=== PATIENT | female | born 1955 | race Caucasian/White ===

== ENCOUNTER 2016-10-01 09:52 | Inpatient (IN) | payer OTHER ==
[2016-10-01] VITALS (15 sets, daily range): BP systolic 114–159; BP diastolic 68–92; PULSE 75–99; RESP 11–26; O2SAT 93–99
[~2016-10-01] VITALS: Ht 162.6 cm; Wt 62.1 kg
[~2016-10-01 09:52] MED LIST: Bupivacaine Liposome 1.3% 20 mL Inj NERVEBLOCK PRN; CeFAZolin Inj 2 GM in IV Premix 1 EACH IV ONE; DIPH25CA6 PO; Lactated Ringer's 1,000 ML IV ONE; OXYC1TAB24 PO; RANI150T11 PO; Tranexamic Acid 100 mg/mL 10 mL Inj IV SCH; Vancomycin Inj 1,000 MG in IV Premix 1 EACH IV ONE
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
[2016-10-01] MEDS ORDERED: Lactated Ringer's 500 ML IV PRN (11:28)
[2016-10-01] MEDS ORDERED: Lactated Ringer's 1,000 ML IV SCH (11:28)
[2016-10-01] MEDS ORDERED: fentaNYL-PF 50 mCg/mL 2 mL Inj IVPUSH PRN (11:30)
[2016-10-01] MEDS ORDERED: hydrALAZINE 20 mg/mL Inj IVPUSH PRN (11:30)
[2016-10-01] MEDS ORDERED: MetoCLOpramide 5 mg/mL 2 mL Inj IVPUSH PRN ×2 (11:30→13:20)
[2016-10-01] MEDS ORDERED: EPHEDrine Sulfate 50 mg/mL Inj IVPUSH PRN (11:30)
[2016-10-01] MEDS ORDERED: Dexamethasone 4 mg/mL Inj IVPUSH PRN (11:30)
[2016-10-01] MEDS ORDERED: Phenylephrine 10,000 mCg/mL Inj IVPUSH PRN (11:30)
[2016-10-01] MEDS ORDERED: HYDROmorphone 1 mg/mL Inj IVPUSH PRN (11:30)
[2016-10-01] MEDS ORDERED: Atropine 0.4 mg/mL Inj IVPUSH PRN (11:30)
[2016-10-01] MEDS ORDERED: Labetalol 5 mg/mL 4 mL Inj IV PRN (11:30)
[2016-10-01] MEDS ORDERED: Ondansetron 2 mg/mL 2 mL Inj IVPUSH PRN ×2 (11:30→13:20)
[2016-10-01] MEDS ORDERED: Bupivacaine Liposome 1.3% 20 mL Inj INFILTRATE ONE (11:46)
[2016-10-01] MEDS ORDERED: Gentamicin 40 mg/mL 2 mL Inj IRRIGATION ONE (11:46)
[2016-10-01] MEDS ORDERED: Bupivacaine-MPF 0.25%/EPI 30 mL Inj INJ ONE (11:46)
[2016-10-01] MEDS ORDERED: Sodium Biphos-Phos 133 mL Enema RECTAL PRN (13:20)
[2016-10-01] MEDS ORDERED: Polyethylene Glycol (PEG) 17 Gm Powder PO PRN (13:20)
[2016-10-01] MEDS ORDERED: Magnesium Hydroxide 10 mL Oral Concentration PO PRN (13:20)
[2016-10-01] MEDS ORDERED: diphenhydrAMINE 25 mg Capsule PO PRN ×2 (13:20→15:00)
[2016-10-01] MEDS ORDERED: Vancomycin Dose per Pharmacist XX ONE (13:20)
--- NOTE | 2016-10-01 13:54 | DRSVH ---
PROCEDURE: X-RAY LEFT KNEE, ONE OR TWO VIEWS ([id number]) INDICATIONS: postop TECHNIQUE: 2 view(s) of the knee acquired. COMPARISON: None. FINDINGS: Bones: Patient is status post knee joint arthroplasty. Hardware components are in expected position s. Visualized bony structures are intact. Soft tissues: Overlying postoperative changes are noted. IMPRESSION: Post operative changes as above. Dictated by: Keara Pollack M.D. on 10/01/2016 at 12:51 Approved by: Keara Pollack M.D. on 10/01/2016 at 12:52
--- NOTE | 2016-10-01 14:32 | PCM.ANEP1 ---
Post Anesthesia PACU Phase 1 Assessment Date of Service: Oct 01, 2016 Vital Signs Vital Signs Date Time Temp Pulse Resp B/P Pulse Ox O2 Delivery O2 Flow Rate FiO2 10/01/16 14:21 80 19 143/84 99 Nasal Cannula 2 10/01/16 14:05 76 12 126/84 98 Nasal Cannula 2 10/01/16 14:00 76 12 128/75 99 Nasal Cannula 2 10/01/16 13:55 36 75 12 123/80 93 Room Air 10/01/16 13:50 81 12 114/73 94 Room Air 10/01/16 13:49 12 94 10/01/16 13:45 85 20 120/68 94 Room Air 10/01/16 13:40 83 11 118/71 98 Room Air 10/01/16 13:35 96 15 117/74 95 Room Air 10/01/16 13:34 36.5 99 26 122/70 95 Room Air 10/01/16 10:12 36.4 86 16 143/85 98 Room Air Anesthetic Administered: Regional Block, SAB Level of Alertness: Awake, talking SHAH's with Equal Strength: No Pain: No Nausea or Vomiting: No CV Function & Hydration Stable: Yes Airway Device: Oxygen Delivery: Room Air Lungs: Normal Air Movement Dermatome Level: T10 (Umbilicus) PACU Phase 2 Assessment Complications: No Follow up Care: N/A Patient Instructions Provided: N/A Slick Malone MD Oct 01, 2016 14:32
[2016-10-01] MEDS ORDERED: Phenylephrine/NS 100 mCg/mL 10 mL Syringe IVPUSH ONE (14:35)
[2016-10-01] MEDS ORDERED: Propofol 10,000 mCg/mL 20 mL Inj ONE (14:35)
[2016-10-01] MEDS ORDERED: fentaNYL-PF 50 mCg/mL 2 mL Inj ONE (14:35)
--- NOTE | 2016-10-01 14:45 | NUR ---
received to room 1020 post op left knee. VSS, alert/oriented, denies pain or nausea at this time, ortho signs OK, lung sounds clear, pt was able to void on BSC with assist.
[2016-10-01] MEDS: oxyCODONE-Acetamin 5-325 mg Tablet PO PRN (16:25)
[2016-10-01] MEDS: Sodium Chloride LOK Flush 10 mL Syringe IV SCH (16:58)
[2016-10-01] MEDS ORDERED: 0.9% Sodium Chloride 250 ML ONE (20:03)
[2016-10-01] MEDS: Senna-Docusate 8.6-50 mg Tablet PO SCH ×2 (20:10→20:30)
[2016-10-01] MEDS: CeFAZolin Inj 2 GM in IV Premix 1 EACH IV SCH (20:12)
--- NOTE | 2016-10-01 21:45 | OP ---
[address] [address] OPERATIVE REPORT PATIENT: JACE BROWN : 1955 MR#: [id number] ADMIT: 10/01/2016 JOB ID: [id number] DATE OF SURGERY: PREOPERATIVE DIAGNOSIS(ES): Advanced arthritis, left knee. POSTOPERATIVE DIAGNOSIS(ES): Advanced arthritis, left knee. PROCEDURE: Total knee arthroplasty. SURGEON: Mingo Leung MD. CABLEWAY OPERATOR: Jackeline Armstrong PA-C. COMPLICATIONS: None. INDICATIONS: This woman has had severe progressive disability uncontrolled by conservative treatment options. She elects to proceed with a total knee replacement. She understands and accepts the potential for risks and complications, which includes but is not limited to infection, thromboembolic, neurovascular events, as well as potential for progressive arthritis and implant failure. Understanding these, she wishes to proceed. PROCEDURE: The patient was prepped and draped in the usual sterile fashion. An anteromedial approach was made. The patella was subluxed laterally, cut and sized to a 32 mm component. Drill stabilization holes were made. A patellar protection plate was utilized. Drill hole placed in the distal femur. A 5-degree valgus distal femoral cut was made. The femur was sized to a 7 chamfer cutting block, fixed in appropriate position and rotation, and drill holes and chamfer cuts were made. Tibia was cut with the extramedullary tool sized to a D tibial component and trial reduction was performed. A 12 mm polyethylene produced excellent alignment, soft tissue tension and tracking. All meniscal tissue and osteophytes were removed. The knee was irrigated with pressurized lavage followed by pressurized cementation. Excess cement was removed during the curing process. Final construct assembled. Tourniquet let down. Hemostasis achieved. Deep closure over a Hemovac drain with number #2 deep followed by a 2-0, 3-0, and a 4-0 intracuticular stitch. Cut margins had been injected with Marcaine with Exparel, the knee had been lavaged with a dilute Betadine solution.
[2016-10-02] MEDS: Sodium Chloride LOK Flush 10 mL Syringe IV SCH ×3 (00:48→14:49)
[2016-10-02] MEDS: CeFAZolin Inj 2 GM in IV Premix 1 EACH IV SCH (04:08)
[2016-10-02 05:17] VITALS: BP 119/74; PULSE 83; RESP 18; O2SAT 93
--- NOTE | 2016-10-02 05:23 | NUR ---
Pain Pt is alert and oriented and able to make needs known. No decreased in LOC noted. Denies N/V/D, resp distress and/or SOB. Dressing on LLE is clean, dry and intact. c/o left knee pain x1 and Morphine 1mg IV administered with good relief noted and reported. Ice also applied on and off on left knee with some relief. Hemovac intact and draining with no concerns. Will continue to monitor.
[2016-10-02 05:40] LABS: BASOPHILS % (AUTO) 0.1 % (0-3); EOSINOPHILS % (AUTO) 0.9 % (0-5); Mean Corpuscular Hemoglobin 34.2 pg (27.0-35.0); Mean Corpuscular Volume 104.2 fL (81-100); NEUTROPHILS % (AUTO) 73.3 % (40-74); Platelet Count 117 bil/L (150-400)
[2016-10-02 08:14] VITALS: BP 117/75; PULSE 90; RESP 18; O2SAT 93
[2016-10-02] MEDS: Senna-Docusate 8.6-50 mg Tablet PO SCH ×2 (08:30→20:42)
--- NOTE | 2016-10-02 11:01 | PCM.PNORTH ---
Subjective Date of Service: Oct 02, 2016 Visit Information: Reason for Visit Left Knee Arthritis Surgery/Surgery Date [facility] 10/01/16 Post-Op Day # 1 Date of Admission: Oct 01, 2016 at 14:34 Hospital Day # Subjective Patient states she is having moderate amount of pain but it is controlled at this time. Postop General: No Complaints, No Shortness of Breath Pain Management: PO Objective Exam Objective Patient sitting up in bed Vital Signs and I/O Vital Sign - Last Date Time Temp Pulse Resp B/P Pulse Ox O2 Delivery O2 Flow Rate FiO2 10/02/16 08:14 37.4 90 18 117/75 93 Room Air 10/01/16 14:45 2.00 Intake and Output 10/01/16 10/01/16 10/02/16 Cumulative From/Thru 15:00 23:00 07:00 09/20/16 16:17 - 10/02/16 06:53 Intake Total 1050 ml 450 ml 400 ml 1900 ml Output Total 20 ml 250 ml 405 ml 675 ml Balance 1030 ml 200 ml -5 ml 1225 ml Intake Oral 450 ml 400 ml 850 ml IV Total 1050 ml 1050 ml Output Urine Total 250 ml 275 ml 525 ml Drainage Total 130 ml 130 ml Estimated Blood Loss 20 ml 20 ml # Bowel Movements 0 0 Lab & Micro Results Laboratory Tests Test 10/02/16 05:10 White Blood Count 6.9th/mm3 (3.8-10.1) Red Blood Count 3.33mil/mm3 (3.90-5.20) Hemoglobin 11.4g/dL (12.0-15.6) Hematocrit 34.7% (35.0-46.0) Mean Corpuscular Volume 104.2fL (81-100) Mean Corpuscular Hemoglobin 34.2pg (27.0-35.0) Mean Corpuscular Hemoglobin Concent 32.9% (32.0-37.0) Red Cell Distribution Width 12.4% (12.3-15.4) Platelet Count 117bil/L (150-400) Neutrophils (%) (Auto) 73.3% (40-74) Lymphocytes (%) (Auto) 16.4% (14-46) Monocytes (%) (Auto) 9.0% (4-12) Eosinophils (%) (Auto) 0.9% (0-5) Basophils (%) (Auto) 0.1% (0-3) Result Diagram: 10/02/16 0510 General Appearance: Alert, Oriented X3, Cooperative, No Acute Distress Extremities: No Compartment Syndrom Noted, Thigh & Calf Soft/Nontender Postop Sensory Motor: Distal Motor Intact, Movement in Toes, Distal Sensation Intact, NVI Distally SURGICAL WOUND : Wound Location/Description Perioperative dressings c/d/i Drain Location Body Site: Knee Wound Drainage Type: Hemovac Activity: Ambulate with PT Assessment & Plan Impression POD#1 left total knee arthroplasty Problems: Plan Weightbearing: Weightbearing as tolerated with a front-wheeled walker DVT prophylaxis: Aspirin 81 mg twice a day 6 weeks Physical therapy for transfers, progressive ambulation, strengthening Wound care: Perioperative dressing will be changed to an island dressing tomorrow. Compression stockings will then be applied. Analgesia: Encourage oral pain medication. Patient takes chronic narcotics and will likely have increased pain postoperatively. Encourage icing and elevating to help manage pain control. Discharge plan: Discharge home in 1-2 days. Start outpatient physical therapy next week. Follow-up plan: In 2 weeks at [facility] with JOLENE for wound check and at [address] Leung with x-rays Jackeline Armstrong PA-C Oct 02, 2016 11:01
[2016-10-02 13:12] VITALS: BP 157/89; PULSE 86; RESP 18; O2SAT 97
--- NOTE | 2016-10-02 14:28 | NUR ---
Social Work- Brief Note Data: EMR reviewed. Pt discussed in multidisciplinary rounds. Pt is POD 1 left TKA. Pt's insurance is [employer]. Pt's PCP is Leonor Ortiz MD. Pt's readmit risk score is not listed at this time. SW met with pt at bedside regarding d/c plan. Pt resides in with her adult son where she is independent at baseline with ADLs and self-care. Pt has necessary DME at home. Pt confirms that she is going to schedule outpt PT. PT has seen pt, pt likely to progress to outpt PT but d/c recs pending at this time. Pt declined DPOA information. Pt's auto parts salesperson is her daughter Sole Espinoza, . Pt likely to d/c home with her daughter to transport via POV. SW will continue to follow. Assessment: Pt who is independent at baseline with self-care. Plan: Pt likely to d/c home with her daughter to transport via POV. SW will continue to follow. Natalie Webster MSW
--- NOTE | 2016-10-02 16:54 | NUR ---
Hemovac Pts hemovac came loose while transferring to the commode. Per orders hemovac was d/c'd immediately after becoming disconnected.
--- NOTE | 2016-10-02 16:55 | NUR ---
Pain Knee pain has been controlled with po pain medication q4 hours. IV tordol used q6 hours and 1 dose of 1mg IV morphine used for breakthrough pain. Pt up to [facility] for safety. Tolerating activity well.
[2016-10-02 17:17] VITALS: BP 130/81; PULSE 75; RESP 18; O2SAT 96
[2016-10-02 19:30] VITALS: BP 154/87; PULSE 91; RESP 17; O2SAT 98
[2016-10-02] MEDS ORDERED: Vancomycin 1 Gm/200 mL NS Premix IV ONE (20:30)
[2016-10-02] MEDS: oxyCODONE-Acetamin 5-325 mg Tablet PO PRN (20:42)
[2016-10-03] MEDS: Sodium Chloride LOK Flush 10 mL Syringe IV SCH ×3 (00:42→16:28)
[2016-10-03 04:30] VITALS: BP 147/83; PULSE 100; RESP 17; O2SAT 93
--- NOTE | 2016-10-03 04:36 | NUR ---
Pain/transfer Pt is alert, oriented and able to make needs known. No changes in LOC noted. Denies nausea, vomiting, diarrhea. Medicated for LLE with percocet x1 and IV morphine 2mg x1 for management with good effectiveness noted. Pt asleep at this current moment. Transfer self to BSC to void. Dressing on LLE is clean, dry, and intact. Circulation, motion, and sensation present on left toes and capillary refill less than 3 sec. Care continue.
[2016-10-03] MEDS: Senna-Docusate 8.6-50 mg Tablet PO SCH (08:59)
--- NOTE | 2016-10-03 09:18 | PCM.PNORTH ---
Subjective Date of Service: Oct 03, 2016 Visit Information: Reason for Visit Left Knee Arthritis Surgery/Surgery Date [facility] 10/01/16 Post-Op Day # Date of Admission: Oct 01, 2016 at 14:34 Hospital Day # Subjective Patient had some nausea yesterday but that is resolved. She complains of incisional pain since the block has completely worn off. She also is having spasms in the leg. Patient has some tolerance to pain medication since she was taking Percocet prior to surgery. She has not yet made arrangements for outpatient physical therapy. She plans on going home for a week, she lives with her son. After that she plans on staying either with her sister or her father while she recuperates. Since she does not know where she will be staying she has not yet made therapy appointments. Postop General: No Shortness of Breath, No Chest Pain, Good Appetite Pain Management: PO, IV Push, Continued Pain Issues Objective Exam Objective Patient is seen sitting up in bed Vital Signs and I/O Vital Sign - Last Date Time Temp Pulse Resp B/P Pulse Ox O2 Delivery O2 Flow Rate FiO2 10/03/16 04:30 37.3 100 17 147/83 93 Room Air 10/01/16 14:45 2.00 Intake and Output 10/02/16 10/02/16 10/03/16 Cumulative From/Thru 15:00 23:00 07:00 09/20/16 16:17 - 10/03/16 06:00 Intake Total 1300 ml 1050 ml 4250 ml Output Total 490 ml 1350 ml 2515 ml Balance 810 ml -300 ml 1735 ml Intake Oral 1300 ml 800 ml 2950 ml IV Total 0 ml 250 ml 1300 ml Output Urine Total 400 ml 1350 ml 2275 ml Drainage Total 90 ml 220 ml Estimated Blood Loss 20 ml # Bowel Movements 0 0 0 Result Diagram: 10/02/16 0510 General Appearance: Alert, Oriented X3, Cooperative, No Acute Distress Extremities: Distal Pulses Palpable, No Compartment Syndrom Noted, Thigh & Calf Soft/Nontender Postop Sensory Motor: Distal Motor Intact, No Movement, NVI Distally SURGICAL WOUND : Wound Location/Description Surgical dressing is removed. The wound is well approximated and Steri-Strips are intact. The wound is cleansed with hydrogen peroxide. Wound is dressed with Silverlon dressing and Island dressing. There is no erythema or drainage present. The drain site was dressed with 2 x 2 gauze and Tegaderm. Drain Location Body Site: Knee Activity: Activity per PT, Ambulate with PT Catheters: None Assessment & Plan Impression POD #2 status post left total knee arthroplasty Problems: Plan Weightbearing: Weightbearing as tolerated with a front-wheeled walker DVT prophylaxis: Aspirin 81 mg twice a day 6 weeks Physical therapy for transfers, progressive ambulation, strengthening Wound care: changed to an island dressing by PA. Nursing pleas apply DESIRAE tavarez today - patient brought them with her park services specialist: Home health physical therapy is ordered since patient is not yet know if she will be staying during the next month. When patient knows which family members she will be staying with her, we will make arrangements for outpatient physical therapy. In the meantime home health physical therapy will continue with patient education, strengthening and gait training due to weakness and limited ambulation. Analgesia: Encourage oral pain medication. Patient takes chronic narcotics and will likely have increased pain postoperatively. Encourage icing and elevating to help manage pain control. Discharge plan: Discharge home today after the afternoon PT session. Start outpatient physical therapy when patient has her home situation arranged. Discharge instructions are reviewed with the patient Follow-up plan: In 2 weeks at [facility] with PA for wound check and at [address] Leung with x-rays Pain Management: Percocet, Toradol, oxycodone, morphine sulfate VTE Prophylaxis: SCDs, Other (aspirin) Resuscitation Status: CPR: Attempt Resuscitation Isabel Sherwood PA-C Oct 03, 2016 09:18
--- NOTE | 2016-10-03 10:16 | PCM.DIORTH ---
Ortho Discharge Instruction Dates of Hospitalization Date of Hospital Admission Oct 01, 2016 at 14:34 Providers Admitting Physician: Mingo Leung MD Primary Care Physician: Leonor Ortiz MD Attending Physician: Mingo Leung MD Diet Discharge Diet: No restrictions Activity Discharge Activity-General: Be up and about, Balance rest and activity, Elevate & ice extremity Left Lower Extremity: Weight Bearing as tolerated Discharge Assist Device: Front Wheeled Walker Dressing and Incisional Care Discharge Dressing Care: Keep dressing clean, dry & intact Discharge Hygiene: May shower, DO NOT soak incision under water, NO bathtub, hot tub or whirlpool Additional Instructions Discharge Instructions Weightbearing: Weightbearing as tolerated with wheeled walker DVT prophylaxis: aspirin 81 mg twice a day 6 weeks Wound care: change every 2-3 days. Wear thigh-high DESIRAE hose for 4 weeks on left leg, and for 2 weeks on right leg. Home Health will provide physical therapy until you have your family situation arranged, then schedule outpatient physical therapy. Activity: get up every hour you are awake and do some exercise for your knee. Either walking or exercises or bending and straightening. You may push it with bending, it will be sore but you will not harm it by bending. Do NOT rest with a pillow under the knee. It is good to have the heel of calf propped up on a pillow or towel roll. On Saturday, the patient may shower with the wound covered with plastic wrap. Pat dry and apply a new dressing. Dressing change: Get the silver dressing wet with 1 syringe of saline, lay the silver side down against the skin over the incision, and cover with big square pad. Elastic stockings or Hernandez wrap will hold the dressing in place. On Saturday you may remove the little dressing on the side of the knee. It does not need to be replaced. Do not remove the Steri-Strips from the surgical incision. Follow Up Plan Follow Up Plan Follow-up at [facility] in 2 weeks with JOLENE for wound check, and at [address] Leung with x-ray Call your provider for: Fever, Chills, Shortness of breath, Vomitting, Drainage at incision, Wound redness (that is spreading), Increasing pain (for no reason) Isabel Sherwood PA-C Oct 03, 2016 10:16
[2016-10-03] MEDS ORDERED: HYDR-3797 PO (10:19)
[2016-10-03] MEDS ORDERED: DOCU-41 PO (10:19)
[2016-10-03] MEDS ORDERED: OXYC1TAB24 PO (10:19)
[2016-10-03] MEDS ORDERED: ASPI-973 PO (10:19)
--- NOTE | 2016-10-03 10:25 | PCM.DC.ORT ---
Discharge Summary Date of Service: Oct 03, 2016 Date of Hospital Admission: Oct 01, 2016 at 14:34 Date of Surgery: Oct 01, 2016 Date of Discharge: Oct 03, 2016 Reason for Hospitalization: Left knee arthritis Procedures Performed: Left total knee arthroplasty Hospital Course: The patient was admitted to the hospital on 10/01/2016 and underwent the above procedure. Antibiotic prophylaxis consisting of Ancef and vancomycin. The surgeon was Dr. Leung. Patient tolerated the procedure well and was transferred to recovery room in stable condition. Patient had physical therapy to work on ambulation and transfers. Weightbearing as tolerated with walker. Pain was managed with morphine, Percocet, Vistaril, Toradol, oxycodone. DVT prophylaxis: SCDs, aspirin. Patient progressed well with physical therapy and on POD-2 was discharged home with home health physical therapy. Patient will be home for about a week and then will go and stay with family near [place]. Once she knows which family members she is staying with, she plans on scheduling outpatient physical therapy. Due to her limitations with strength and ambulation, home health physical therapy is ordered. Follow-up: at [facility]3] 2 weeks postop for wound check and at [address] Leung with x-ray Diagnosis at Time of Discharge Status post left total knee arthroplasty Problems: Disposition: Discharged home in stable condition Additional Information Follow-up at [facility] ([facility]3] in 2 weeks with PA for wound check, and at [address] Leung with x-ray Discharge Instructions: Discharge Activity-General: Be up and about, Balance rest and activity, Elevate & ice extremity Left Lower Extremity: Weight Bearing as tolerated Discharge Assist Device: Front Wheeled Walker Discharge Dressing Care: Keep dressing clean, dry & intact Discharge Hygiene: May shower, DO NOT soak incision under water, NO bathtub, hot tub or whirlpool Weightbearing: Weightbearing as tolerated with wheeled walker DVT prophylaxis: aspirin 81 mg twice a day 6 weeks Wound care: change every 2-3 days. Wear thigh-high DESIRAE hose for 4 weeks on left leg, and for 2 weeks on right leg. Home Health will provide physical therapy until you have your family situation arranged, then schedule outpatient physical therapy. Activity: get up every hour you are awake and do some exercise for your knee. Either walking or exercises or bending and straightening. You may push it with bending, it will be sore but you will not harm it by bending. Do NOT rest with a pillow under the knee. It is good to have the heel of calf propped up on a pillow or towel roll. On Saturday, the patient may shower with the wound covered with plastic wrap. Pat dry and apply a new dressing. Dressing change: Get the silver dressing wet with 1 syringe of saline, lay the silver side down against the skin over the incision, and cover with big square pad. Elastic stockings or Hernandez wrap will hold the dressing in place. On Saturday you may remove the little dressing on the side of the knee. It does not need to be replaced. Do not remove the Steri-Strips from the surgical incision. Aspirin (Aspirin) 81 Mg Tablet 81 MG PO BID Docusate Sodium (Colace) 100 Mg Capsule 100 MG PO BID PRN PRN For Constipation Hydroxyzine Pamoate (HydrOXYzine Pamoate) 25 Mg Capsule 25 MG PO Q6H PRN PRN For Spasm Ranitidine (Zantac) 150 Mg Tablet 150 MG PO BID diphenhydrAMINE HCl (Benadryl) 25 Mg Capsule 25-50 MG PO Q4 PRN PRN For Anxiety oxyCODONE-Acetaminophen 5-325 mg (oxyCODONE-Acetaminophen 5-325 mg) 1 Each Tablet 1-2 TAB PO Q4H PRN PRN For Pain Max 8 per day Isabel Sherwood PA-C Oct 03, 2016 10:25
[2016-10-03] MEDS: hydrOXYzine Pamoate 25 mg Capsule PO PRN ×2 (10:30→17:07)
--- NOTE | 2016-10-03 11:05 | NUR ---
Social Work: Discharge/Multidisciplinary Rounds D: Pt discussed in multidisciplinary rounds; pt is medically stable for discharge. Teresa FERNÁNDEZ has ordered for HH PT. CLINICAL RESEARCH PHYSICIAN met with the patient at bedside to discuss recommendations. HH CHOICE LIST PROVIDED. She is in agreement with and has no preference for HH companies. The patient has [employer] insurance. CLINICAL RESEARCH PHYSICIAN requested [facility] make referrals to all three Companies services [place]. US will refer to [facility] to inquire if they are accepting Medicaid patients. CLINICAL RESEARCH PHYSICIAN informed the patient and the teresa PA that the pt's insurance may be a barrier to a HH discharge and pt may need to follow up as an outpatient. They both understand. A: Pt who is admitted for an elective knee surgery. P: Anticipate pt to discharge home via POV and possible home health; [facility] and [employer] [facility] will update note if a company can accept the patient. F2F completed by JOLENE. CAROLINA Erwin Addendum: 10/03/16 at 1202 by JENNIFER PINEDA SS Per [facility] have all declined to accept the patient due to her [employer] insurance. CAROLINA has notified orthoMartaPA and patient of this. Mercedes is going to talk to the patient about discharge. Pt will likely discharge home and need to follow up with outpatient therapies. CAROLINA Erwin Addendum: 10/03/16 at 1610 by IMELDA WEBSTER SS SW followed up with pt at bedside regarding d/c plan and HH services. All three local HH companies do not contract with [facility]. Pt states understanding and will follow up with outpt PT. Pt confirms that she will find an outpt PT provider that accepts [facility] in [place]. Pt confirms that her daughter will transport home at d/c. Natalie Webster, CLINICAL RESEARCH PHYSICIAN
--- NOTE | 2016-10-03 11:33 | NUR ---
Called [facility], and [facility] per [facility], to inquire wether or not any of the facilities accept [facility].All of facilities denied.
[2016-10-03 13:05] VITALS: BP 163/83; PULSE 99; RESP 18; O2SAT 97
[2016-10-03] MEDS: oxyCODONE-Acetamin 5-325 mg Tablet PO PRN (17:08)
--- NOTE | 2016-10-03 17:17 | NUR ---
Discharge Pt d/c'd from room 1020 at 1716. All discharge teaching and instructions done with pt at bedside. All questions and concerns addressed. IV d/c'd intact. No items in the safe or pharmacy. Pt has all follow up apts scheduled. Hard copy of RX with the pt. Pain management education done with pt.
== END 2016-10-03 17:17 | disposition home or self-care (01) | DRG 470 ==
LOC: SAS 09:52 → OSC 14:34 → SAS 14:34 → OSC 14:34
PROVIDERS: ADMIT Orthopaedic Surgery; ATTEND Orthopaedic Surgery
PROC: 0SRD0J9 Replacement of Left Knee Joint with Synthetic Substitute, Cemented, Open Approach (ICD-10-PCS; principal; 2016-10-01 11:45)
DX: M17.12 Unilateral primary osteoarthritis, left knee (principal); K21.9 Gastro-esophageal reflux disease without esophagitis; Z88.0 Allergy status to penicillin